=== PATIENT | male | born 1965 | race Caucasian/White ===

== ENCOUNTER → 2019-03-06 | Outpatient (CLI) | payer BC ==
[~2019-03-06] MED LIST: LORTAB 5/500 501 TAB PO; NAPROSYN500 MG PO; NO HOME MEDICATIONS
== END ==
LOC: COL.VAS 07:35
DX: I10 Essential (primary) hypertension (principal)

== ENCOUNTER 2021-03-03 11:58 | Day surgery (SDC) | payer BC ==
[2021-03-03] VITALS (9 sets, daily range): BP systolic 106–177; BP diastolic 114–141; PULSE 82–147; TEMP 97.9
[~2021-03-03] VITALS: Ht 170.2 cm; Wt 77.2 kg
[2021-03-03] MEDS ORDERED: PRILOSEC10 MG PO (13:00)
[2021-03-03] MEDS ORDERED: PRINIVIL10 MG PO (13:00)
[2021-03-03 13:15] LABS: BASO % 0.5 % (0.0-2.0); EOS % 0.4 % (0.0-4.0); GRAN # 6.5 K/mm3 (1.4-6.5); GRAN % 77.5 % (42.2-75.2); HEMATOCRIT 48.6 % (42.0-52.0); HEMOGLOBIN 16.7 g/dl (13.5-18.0); LYMPH # 1.3 K/mm3 (1.2-3.4); LYMPH % 15.6 % (20.0-51.0); MEAN CELL VOLUME 89 fl (80.0-100.0); MEAN CORPUSCULAR HEMOGLOBIN 31 pg (27-31); MEAN CORPUSCULAR HGB CONC 34 g/dl (33.0-37.0); MEAN PLATELET VOLUME 11.3 fl (7.4-10.4); MONO # 0.5 K/mm3 (0.1-0.6); MONO % 5.6 % (1.7-9.3); PLATELET COUNT 193 K/mm3 (130-400); RED BLOOD COUNT 5.48 M/mm3 (4.20-5.60); REDCELL DISTRIBUTION WIDTH-CV 12.9 % (11.5-14.5)
[2021-03-03 13:28] LABS: INR 1.1 (0.8-3.0); PROTHROMBIN TIME 12.1 SECONDS (9.7-12.8)
[2021-03-03 14:19] LABS: ALBUMIN 4.1 gm/dL (3.5-5.0); BILIRUBIN,TOTAL 1.4 mg/dL (0.2-1.2); CALCIUM 8.7 mg/dL (8.4-10.2); CREATININE, serum 1.2 mg/dL (0.72-1.25); MAGNESIUM 2.2 mg/dL (1.6-2.6); POTASSIUM 4.4 mmol/L (3.5-4.5)
[2021-03-03 14:40] LABS: THYROID STIMULATING HORMONE 0.61 uIU/mL (0.350-4.940)
--- NOTE | 2021-03-03 15:00 | NUR ---
Elevated BPs discussed with Zainab Aldridge NP. Pt alert, free of complaints.
[2021-03-03] MEDS ORDERED: ZESTRIL 20MG TA20 MG PO (17:07)
--- NOTE | 2021-03-03 17:15 | NUR ---
Zainab Aldridge, [employer] aware of continuation of elevated BP and HR. She has been in to speak with pt about new rx meds and plan for return procedure Saturday. Pt has continued in a fib with variable rates throughout stay in [facility]. Pt has remained stable in room, steady on feet, stating he feels fine and is understandable that due to no available bed in hospital, he will DC home and return [facility] as scheduled.
[2021-03-03] MEDS ORDERED: APRESOLINE 10MG10 MG PO (17:16)
--- NOTE | 2021-03-03 17:27 | NUR ---
Pt is ready for departure. I have reviewed pt's dc/rx and fu instructions with him, and pt verbalized understanding. Dr. Schafer and Zainab BELLAMY have both been in to speak with pt and to discuss poc. Providers are aware of pt's persistent hypertension and afib with rvr at time of departure. Pt plans to return for cardioversion tuesday 03/07 at 1145. Pt is up and ambulatory to bathroom with steady gait. IV dc'd with cath intact, dressing applied. to exit via wheelchair where pt's dad is waiting for him,
--- NOTE | 2021-03-04 09:19 | NUR ---
I contacted DR. Schafer this am after realizing pt was not prescribed amiodarone upon his discharge 03/03/21. Took verbal order to call in rx for amiodarone 400 mg PO BID x 1 week. I contacted pt 03/04/21 at 0910 explaining he would need to sweet pickled fruit maker this rx from [facility] this am. Pt verbalized understanding. RX for PO amiodarone 400 mg BID x 1 week was called in to [facility]. I spoke with [facility] pharmacist.
== END 2021-03-03 19:25 | disposition home or self-care (01) ==
LOC: COL.CAR 11:58
PROVIDERS: Nurse Practitioner
DX: I48.91 Unspecified atrial fibrillation (principal); I10 Essential (primary) hypertension; R53.83 Other fatigue; R06.02 Shortness of breath; Z79.899 Other long term (current) drug therapy; Z83.3 Family history of diabetes mellitus
CPT/HCPCS: J0282; J0360; J2704; J7030; J7060

== ENCOUNTER 2021-03-07 11:39 | Day surgery (SDC) | payer BC ==
[~2021-03-07] VITALS: Ht 170.2 cm; Wt 75.4 kg
[~2021-03-07 11:39] MED LIST changes: +APRESOLINE 10MG10 MG PO; +PRILOSEC10 MG PO; +PRINIVIL10 MG PO; +ZESTRIL 20MG TA20 MG PO
[2021-03-07] MEDS ORDERED: ZESTRIL 20MG TA20 MG PO (12:28)
[2021-03-07] MEDS ORDERED: APRESOLINE 10MG10 MG PO (12:28)
[2021-03-07] MEDS ORDERED: ELIQUIS 5MG PO (12:32)
[2021-03-07] MEDS ORDERED: CORDARONE200 MG/TAB PO (12:32)
[2021-03-07 12:44] LABS: INR 1.2 (0.8-3.0); PROTHROMBIN TIME 13.8 SECONDS (9.7-12.8)
[2021-03-07 12:48] LABS: MAGNESIUM 2.3 mg/dL (1.6-2.6); POTASSIUM 4.1 mmol/L (3.5-4.5)
[2021-03-07 13:09] LABS: THYROID STIMULATING HORMONE 1.505 uIU/mL (0.350-4.940)
[2021-03-07 13:20] VITALS: BP 149/112; PULSE 84
[2021-03-07 13:30] VITALS: BP 170/124; PULSE 75
[2021-03-07 13:45] VITALS: BP 153/118; PULSE 66
--- NOTE | 2021-03-07 13:45 | NUR ---
Report from Anna riley.
[2021-03-07 14:00] VITALS: BP 173/117; PULSE 66
[2021-03-07 14:30] VITALS: BP 157/114; PULSE 73
[2021-03-07] MEDS ORDERED: COREG 3.123.125 MG/T PO (14:46)
--- NOTE | 2021-03-07 14:58 | NUR ---
Discharge instructions given to pt.Pt verbalizes understanding.INT removed,catheter tip intact.
--- NOTE | 2021-03-07 15:11 | NUR ---
Pt escorted out via wheelchair by this nurse.
== END 2021-03-07 15:18 ==
LOC: COL.CAR 11:39
PROVIDERS: Internal Medicine Interventional Cardiology
DX: I48.91 Unspecified atrial fibrillation (principal); I10 Essential (primary) hypertension; K21.9 Gastro-esophageal reflux disease without esophagitis; R53.83 Other fatigue; R06.02 Shortness of breath; Z79.899 Other long term (current) drug therapy; Z79.01 Long term (current) use of anticoagulants; Z83.3 Family history of diabetes mellitus; Z82.49 Family history of ischemic heart disease and other diseases of the circulatory system
CPT/HCPCS: J2704; J7120